=== PATIENT | female | born 1960 | race Caucasian/White ===

== ENCOUNTER 2024-09-19 03:03 | Emergency (ER) | payer MEDICARE, SELFPAY ==
[2024-09-19 03:11] VITALS: BP 134/50; PULSE 70; RESP 16; TEMP 36.4; O2SAT 100; BMI 22.0
[2024-09-19 06:32] VITALS: BP 117/55; PULSE 67; RESP 18; TEMP 36.6; O2SAT 98
[2024-09-19 07:36] VITALS: BP 105/54; PULSE 69; RESP 17
--- NOTE | 2024-09-19 07:36 | PC.NURSE ---
Care of Pt assumed at change of shift Pt is A&Ox3, VSS Skin is warm and dry Breaths and speech are even and unlabored. Pt reports feeling tired but states a major improvement overall in how she is feeling. She reports no pain. She states she is looking forward to discharge. Pt is resting quietly without distress. Awaiting dispo.
--- NOTE | 2024-09-19 07:48 | ED_ITS ---
HPI - General Adult General Chief complaint: Skin/Abscess/Foreign Body Stated complaint: n/v , rash Time Seen by Provider: 09/19/24 03:39 Source: patient Mode of arrival: ambulatory Limitations: no limitations History of Present Illness ED Provider: Dr. Carli Gandhi HPI narrative: 64 year old female with history of eczema presenting with red raised rash all over her body that has been worsening for the last 3 days or so. Admits [place] the beach [place] and in the hot weather. Downs as though she kept out of the sun rather well, but admits that several days after returning, she developed this pruritic red rash that has been worsening since. No relief with benedryl or hydrocortisone cream. Today woke with nausea and vomiting. No associated abdominal pain or diarrhea. No tongue swelling, shortness of breath of near syncope. Her back is so painful and itchy she is unable to sleep. No changes in medication or products in the home. No tick or mosquoito bites that she is aware of. Related Data Previous Rx's ?Medication ?Instructions ?Recorded epinephrine 0.3 mg/0.3 mL 0.3 mg (0.3 mL) IM Q10M PRN 09/19/24 injection, auto-injector (EpiPen anaphylaxis #2 ea 2-Mayo) gabapentin 300 mg capsule 300 mg PO TID #14 caps 09/19 prednisone 10 mg tablets in a dose 10 mg PO DAILY #48 ea 09/19/24 pack Allergies Allergy/AdvReac Type Severity Reaction Status Date / Time No Known Allergies Allergy Verified 09/19/24 03:14 Review of Systems Review of Systems: as per HPI, full review of systems performed and negative but for the above mentioned pertinent positives and negatives. REPLACED BY [facility] Past Medical History Attestation statement: The following information was validated with the patient. REPLACED BY [facility] Narrative: eczema Social History Social History Smoked in Last 30 Days: Yes Use of substances other than those prescribed or required for medical reasons: No Advance Directives: No Advance Directives Information Provided: Yes Do you have a plan to hurt others: No Plan Physical Exam ED Exam Exam: GENERAL: Ill-Appearing, appears uncomfortable. SKIN: Urticarial, painful, red raised rash overlying the entire torso, arms, thighs, neck, no vesicular lesions, no purpura. HEENT:? Normocephalic, atraumatic, no stridor, dry mucous membranes, dentition intact, EOMI, posterior oropharynx is patent, no tongue or uvula swelling. NECK: Soft, supple, full ROM, midline structures nontender, no step-offs, no deformities, no lymphadenopathy. CHEST: Heart regular tachycardia, no murmurs, symmetric chest rise and fall. PULMONARY: Clear to auscultation bilaterally, diminished at the bases, no labored breathing, no wheezes/rhales/rhonchi. ABDOMINAL: Soft, nondistended, nontender, positive bowel sounds in all quadrants. : Deferred. MUSCULOSKELETAL: Normal tone, full range of motion, no deformities, no peripheral edema. NEURO: Alert and oriented x3, CN II through XII intact, equal strength and sensation bilateral upper and lower extremities, no focal neurologic deficits.? PSYCHIATRIC: Flat affect, fluid speech, good eye contact and appropriate demeanor. Vital Signs: Vital Signs - 24 hr 09/19/24 03:11 09/19/24 06:32 09/19/24 07:36 Temperature 97.6 F 97.9 F Pulse Rate 70 67 69 Respiratory Rate 16 18 17 Blood Pressure 134/50 L 117/55 L 105/54 L Pulse Oximetry 100 98 Oxygen Delivery Method Room Air Room Air BMI result Body Mass Index 22.0 Medications Administered Discontinued Medications Generic Name Dose Route Start Last Admin Trade Name Freq PRN Reason Stop Dose Admin Acetaminophen 975 mg 09/19/24 05:31 09/19/24 05:40 Acetaminophen 325 Mg Tablet PO 09/19/24 05:32 975 mg ONCE ONE Administration Dexamethasone Sodium Phosphate 10 mg 09/19/24 04:20 09/19/24 04:57 Dexamethasone Sod Phosphate 10 Mg/Ml Vial IM 09/19/24 04:21 10 mg ONCE ONE Administration Diphenhydramine HCl 50 mg 09/19/24 05:31 09/19/24 05:40 Diphenhydramine Hcl 25 Mg Capsule PO 09/19/24 05:32 50 mg ONCE ONE Administration Famotidine 20 mg 09/19/24 04:20 09/19/24 04:57 Famotidine 20 Mg Tablet PO 09/19/24 04:21 20 mg ONCE ONE Administration Gabapentin 300 mg 09/19/24 05:31 09/19/24 05:41 Gabapentin 300 Mg Capsule PO 09/19/24 05:32 300 mg ONCE ONE Administration Loratadine 10 mg 09/19/24 04:20 09/19/24 04:57 Loratadine 10 Mg Tablet PO 09/19/24 04:21 10 mg ONCE ONE Administration Medical Decision Making Medical Decision Making MDM Narrative: Patient presented today for signs and symptoms of possible allergic reaction. Differential diagnosis did include angioedema, anaphylaxis, drug reaction, infection, among others. Clinical picture is consistent with sun rash vs dermatitis. She did vomit today, but denies associated diarrhea or abd pain. Physical examination does not show any signs of multiple system involvement such as anaphylaxis, though this was considered.? Patient is not having any wheezing, abdominal pain, or concerning swelling of the tongue or oropharynx.? Airway is unobstructed and blood pressures are within normal limits. Anaphylaxis precautions have been given to the patient in a note to return immediately for signs and symptoms of this.? Patient was offered/provided with a prescription for an Epi-Pen. Patient has been urged to follow up with supervisor lens generating as outpatient.? All questions have been answered and patient is stable for discharge. They are welcome back at any time for re-evaluation as we are always happy to do so. Differential Diagnosis Differential Diagnoses: The differential diagnosis associated with the presentation includes (as above) Admission/Observation Consideration of admission/observation: Escalation of care including admission/observation considered Independent Historian Clinical information obtained from an independent historian. History obtained from or confirmed by: Spouse Prescription Management I considered prescription management with: Other (steriods) Chronic Conditions Patient?s care impacted by: Other (eczema) Discharge Plan Discharge Clinical Impression: Dermatitis, Allergic reaction Patient Disposition: Home, Self-Care Instructions: General Allergic Reaction (ED), Dermatitis (ED) Prescriptions: New gabapentin 300 mg capsule 300 mg PO TID Qty: 14 0RF prednisone 10 mg tablets,dose pack 10 mg PO DAILY Qty: 48 0RF epinephrine [EpiPen 2-Mayo] 0.3 mg/0.3 mL auto-injector 0.3 mg IM Q10M PRN (Reason: anaphylaxis) Qty: 2 0RF Rx Instructions: for 2 doses Interventions: ED Discharge Assessment Last Done: 09/19/24 07:56 Discharge Date/Time: 09/19/24 07:57 Print Language: Slovenian
[2024-09-19 07:56] VITALS: BP 105/54; PULSE 69; RESP 17; TEMP 36.8; O2SAT 95
== END 2024-09-19 07:57 | disposition home or self-care (01) ==
PROVIDERS: Emergency Provider Emergency Medicine
DX: L50.0 Allergic urticaria (principal); R11.2 Nausea with vomiting, unspecified
CPT/HCPCS: 96372; 99284; J1100